=== PATIENT | female | born 1945 | race Caucasian/White ===

== ENCOUNTER 2019-08-10 19:06 | Emergency (ER) | payer OTHER ==
[~2019-08-10] VITALS: Ht 165.1 cm; Wt 65.8 kg
[2019-08-10] MEDS ORDERED: NORCO 5-325 TA1 EAC1 PO (21:26)
[2019-08-10 21:36] VITALS: BP 144/83
== END 2019-08-10 21:37 | disposition home or self-care (01) ==
LOC: ER 19:06
DX: S01.112A Laceration without foreign body of left eyelid and periocular area, initial encounter (principal); W19.XXXA Unspecified fall, initial encounter; Y93.89 Activity, other specified; Y92.89 Other specified places as the place of occurrence of the external cause; Y99.8 Other external cause status

== ENCOUNTER 2020-03-30 16:14 | Emergency (ER) | payer OTHER ==
[~2020-03-30] VITALS: Ht 157.5 cm; Wt 61.2 kg
[~2020-03-30 16:14] MED LIST: NORCO 5-325 TA1 EAC1 PO
[2020-03-30 17:57] LABS: URINE BILIRUBIN NEGATIVE (Negative); URINE BLOOD NEGATIVE (Negative); URINE CLARITY CLEAR; URINE COLOR YELLOW; URINE GLUCOSE-RANDOM* NEGATIVE (Negative); URINE KETONES NEGATIVE (Negative); URINE LEUKOCYTES-REFLEX NEGATIVE (Negative); URINE NITRITE-REFLEX NEGATIVE (Negative); URINE PROTEIN (DIPSTICK) NEGATIVE (Negative); URINE UROBILINOGEN 0.2 E.U./dl (0.2-1.0)
[2020-03-30 18:21] LABS: ABSOLUTE NEUTROPHILS 5.6 thou/uL (1.4-8.2); BASOPHILS 0.3 % (0.0-2.0); EOSINOPHILS 0.5 % (0.0-3.0); HEMATOCRIT 39.4 % (37.0-47.0); HEMOGLOBIN 13.4 gm/dL (12.0-15.0); LYMPHOCYTES 15.4 % (24.0-44.0); MCH 31.2 pg (26.0-34.0); MCV 91.6 fL (80.0-100.0); MONOCYTES 5.3 % (1.0-8.0); PLATELET COUNT 296 thou/uL (150-400); POLYS 78.5 % (36.0-66.0); RDW 12.8 % (10.5-14.5); WBC 7.1 thou/uL (4.0-11.0)
[2020-03-30 18:43] LABS: ANION GAP < 0 mmol/L (7-16); BUN 18 mg/dL (7-18); CALCIUM 9.5 mg/dL (8.5-10.1); CHLORIDE 106 mmol/L (98-107); CO2 26 mmol/L (21-32); CREATININE 0.7 mg/dL (0.6-1.0); GLUCOSE 104 mg/dL (74-106); POTASSIUM 4.1 mmol/L (3.5-5.1); SODIUM 131 mmol/L (136-145)
[2020-03-30 18:53] LABS: ALBUMIN 3.8 g/dL (3.4-5.0); MAGNESIUM 1.7 mg/dL (1.8-2.4); SGOT 20 U/L (15-37); SGPT 17 U/L (30-65); TOTAL BILIRUBIN 0.3 mg/dL (0.2-1.0); TOTAL PROTEIN 7.2 g/dL (6.4-8.2); TROPONIN-I <0.06 ng/mL (<0.06)
[2020-03-30 19:48] VITALS: BP 169/93
--- NOTE | 2020-04-01 07:39 | EKG ---
[place] [address] ELECTROCARDIOGRAM REPORT Name: JIGNESH BRICEÑO Room #: [facility]#: [id number] Admission: 03/30/20 Attend Phys: Discharge: 03/30/20 Date of : 49 Report #: [id number] THIS REPORT FOR: cc: Angelica Pepper MD, Cynthia MD Lundgren,Tahir Burnette MD [facility] ~ THIS REPORT FOR: //name// ED Test Date: 2020-03-30 Test Time: 17:03:27 Pat Name: JIGNESH BRICEÑO Department: Room: Gender: F Psychiatric Assistant: [facility] : 1945 Requested By: Nikki Valentine Order Number: [id number] MD: Tahir Hernandez Measurements Intervals [place] Rate: 84 P: 62 AR: 126 QRS: 57 QRSD: 77 T: 64 QT: 345 QTc: 408 Interpretive Statements Sinus rhythm Possible septal infarct, age indeterminate No previous ECG available for comparison Electronically Signed On 04-01-2020 7:39:25 CDT by Tahir Hernandez [email or web address] <ELECTRONICALLY SIGNED> By: Tahir Hernandez MD, FAC 04/01/20 0739 02 02 Tahir Hernandez MD, [facility] /EPI
== END 2020-03-30 19:51 | disposition home or self-care (01) ==
LOC: ER 16:14
PROVIDERS: Physician Assistant
DX: S09.90XA Unspecified injury of head, initial encounter (principal); R42 Dizziness and giddiness; R11.10 Vomiting, unspecified; Z79.899 Other long term (current) drug therapy; Z90.49 Acquired absence of other specified parts of digestive tract; Z86.73 Personal history of transient ischemic attack (TIA), and cerebral infarction without residual deficits; Z98.890 Other specified postprocedural states; Z85.118 Personal history of other malignant neoplasm of bronchus and lung; W18.09XA Striking against other object with subsequent fall, initial encounter; Y93.89 Activity, other specified; Y92.098 Other place in other non-institutional residence as the place of occurrence of the external cause; Y99.8 Other external cause status

== ENCOUNTER → 2020-04-17 | Outpatient (CLI) | payer OTHER | LOC: SJCVC 10:39 | PROVIDERS: ATTEND Internal Medicine | DX: R94.31 Abnormal electrocardiogram [ECG] [EKG] (principal); I51.7 Cardiomegaly; E78.00 Pure hypercholesterolemia, unspecified; Z79.899 Other long term (current) drug therapy; Z87.891 Personal history of nicotine dependence ==

== ENCOUNTER → 2020-05-15 | Outpatient (CLI) | payer OTHER | LOC: SJCVC 09:59 | PROVIDERS: ATTEND Internal Medicine | DX: I48.0 Paroxysmal atrial fibrillation (principal); J44.9 Chronic obstructive pulmonary disease, unspecified; E78.5 Hyperlipidemia, unspecified; Z90.49 Acquired absence of other specified parts of digestive tract; Z87.891 Personal history of nicotine dependence ==

== ENCOUNTER → 2020-05-23 | Outpatient (CLI) | payer OTHER | LOC: SJCVCIMAG 08:10 | PROVIDERS: ATTEND Internal Medicine | DX: I07.1 Rheumatic tricuspid insufficiency (principal); I48.0 Paroxysmal atrial fibrillation; R55 Syncope and collapse ==

== ENCOUNTER → 2020-05-24 | Outpatient (CLI) | payer OTHER | LOC: SJCVCIMAG 07:49 | PROVIDERS: ATTEND Internal Medicine | DX: I48.91 Unspecified atrial fibrillation (principal); I49.3 Ventricular premature depolarization; Z79.899 Other long term (current) drug therapy ==

== ENCOUNTER → 2020-05-27 | Outpatient (CLI) | payer OTHER | LOC: SJCVC 10:23 | PROVIDERS: ATTEND Internal Medicine | DX: R55 Syncope and collapse (principal); I48.0 Paroxysmal atrial fibrillation; J44.9 Chronic obstructive pulmonary disease, unspecified; E78.5 Hyperlipidemia, unspecified; E78.00 Pure hypercholesterolemia, unspecified; Z87.891 Personal history of nicotine dependence; Z79.899 Other long term (current) drug therapy ==

== ENCOUNTER → 2020-10-16 | Outpatient (CLI) | payer OTHER | LOC: SJCVC 14:02 | PROVIDERS: ATTEND Internal Medicine | DX: R94.31 Abnormal electrocardiogram [ECG] [EKG] (principal); I51.7 Cardiomegaly; I48.0 Paroxysmal atrial fibrillation; J44.9 Chronic obstructive pulmonary disease, unspecified; R55 Syncope and collapse; E78.00 Pure hypercholesterolemia, unspecified; M19.90 Unspecified osteoarthritis, unspecified site; E78.5 Hyperlipidemia, unspecified; Z90.49 Acquired absence of other specified parts of digestive tract; Z98.890 Other specified postprocedural states; Z79.899 Other long term (current) drug therapy; Z86.73 Personal history of transient ischemic attack (TIA), and cerebral infarction without residual deficits; Z87.891 Personal history of nicotine dependence ==

== ENCOUNTER 2021-05-23 08:50 | Emergency (ER) | payer OTHER ==
[~2021-05-23] VITALS: Ht 157.5 cm; Wt 61.7 kg
[2021-05-23] MEDS ORDERED: ELIQUIS5 MG PO (09:25)
[2021-05-23] MEDS ORDERED: APAP W/CODEINE1 TA2 PO (10:16)
[2021-05-23 10:37] VITALS: BP 140/77
== END 2021-05-23 10:27 | disposition home or self-care (01) ==
LOC: ER 08:50
DX: S40.022A Contusion of left upper arm, initial encounter (principal); W18.09XA Striking against other object with subsequent fall, initial encounter; Y93.89 Activity, other specified; Y92.89 Other specified places as the place of occurrence of the external cause; Y99.9 Unspecified external cause status